=== PATIENT | male | born 1980 | race Caucasian/White ===

== ENCOUNTER 2024-07-30 13:09 | Emergency (ER) | payer OTHER, SELFPAY ==
[~2024-07-30] VITALS: Ht 172.7 cm; Wt 113.0 kg
[2024-07-30 13:16] VITALS: O2SAT 98
[2024-07-30] MEDS: METOCLOPRAMIDE HCL 10MG/2ML VIAL IV ONE (14:29)
[2024-07-30 14:38] LABS: BASOPHILS % 0.5 % (0.0-2.0); EOSINOPHILS % 0.9 % (0.0-5.0); HEMATOCRIT. 45.8 % (42.0-52.0); HEMOGLOBIN. 14.9 g/dL (14.0-18.0); LYMPHOCYTES % 12.5 % (20.0-50.0); MEAN CORPUSCULAR HEMOGLOBIN 27.9 pg (28.0-32.0); MEAN CORPUSCULAR HGB CONC 32.5 g/dL (31.0-37.0); MEAN CORPUSCULAR VOLUME 85.7 fL (80.0-94.0); MEAN PLATELET VOLUME 8.8 fl (7.4-10.4); MONOCYTES % 4.8 % (2.0-8.0); NEUTROPHILS % 81.3 % (40.0-76.0); PLATELET 242 x1000/uL (130-400); RED BLOOD CELL COUNT 5.35 mill/uL (4.7-6.1); WHITE BLOOD COUNT 11.9 x1000/uL (4.5-11.0)
[2024-07-30 14:47] LABS: CALCIUM 9.1 mg/dL (8.7-10.4); CARBON DIOXIDE 29 mEq/L (21-32); CHLORIDE 105 mEq/L (98-107); POTASSIUM 3.9 mEq/L (3.5-5.1); SODIUM 143 mEq/L (136-145)
[2024-07-30 14:52] LABS: CREATININE 0.8 mg/dL (0.6-1.3); GLUCOSE 107 mg/dL (70-105); UREA NITROGEN BLOOD 18 mg/dL (9-23)
[2024-07-30 14:53] LABS: TROPONIN I HIGH SENSITIVITY < 4 ng/L (3.0-53)
[2024-07-30 14:54] LABS: ALANINE AMINOTRANSFERASE 28 IU/L (10-49); ALBUMIN 4.3 g/dL (3.2-4.8); ASPARTATE AMINOTRANSFERASE 20 IU/L (<34); BILIRUBIN TOTAL 0.4 mg/dL (0.1-1.0); PROTEIN TOTAL 6.7 g/dL (6.0-8.3)
[2024-07-30 14:55] LABS: BILIRUBIN DIRECT < 0.1 mg/dL (<=3.0)
[2024-07-30] MEDS ORDERED: MECL-299 MT (15:10)
[2024-07-30 15:20] VITALS: BP 125/77; PULSE 77; RESP 16; TEMP 36.7; O2SAT 99
== END 2024-07-30 15:25 | disposition home or self-care (01) ==
LOC: ER 13:09
DX: R42 Dizziness and giddiness (principal); E11.9 Type 2 diabetes mellitus without complications; Z79.899 Other long term (current) drug therapy
CPT/HCPCS: 99285; 96374; 70450; 71045; 80076; 80048; 83880; 83690; 85025; 84484; 36415; 93005; J2765